=== PATIENT | male | born 1960 | race Caucasian/White ===

== ENCOUNTER → 2016-07-14 | Outpatient (CLI) | payer OTHER ==
[~2016-07-14] MED LIST: IOPAMIDOL (ISOVUE 370) 100 ML BTL IV ONE
--- NOTE | 2016-07-14 19:12 | CT ---
CT Chest Without Contrast dated July 14, 2016 Indication: 55-year-old man with history of ascending aortic aneurysm. Surveillance. Technique: 1.25 mm thick helically acquired slices were obtained through the chest without contrast. Contrast was not administered since the patient reported delayed mild contrast reaction following an iodinated contrast study in the past and the patient was not premedicated for the current exam. Comparison: MR angiogram of the chest dated May 13, 2014. Findings: The dilated ascending aorta now measures 5 cm AP (previously 4.8 cm). The descending thorac ic aorta is normal in caliber. Prosthetic aortic valve and graft are evidenced by a radiopaque materi al at the level of the valve and downstream graft anastomosis. No mediastinal stranding or hematoma. No enlarged lymph node or mass throughout the axilla, mediastin um or pulmonary percy. No pericardial or pleural effusion. The lungs are well aerated and clear. No emphysema or pulmonary fibrosis. Central airway is clear. No bronchiectasis or mucous plugging. A probably benign 2 mm round well-circumscribed nodule is present in the posterior segment right upper lobe on image 90 of series 3. No suspicious spiculated or groun dglass nodules. No bone lesions. Remote sternotomy is completely osseous fused. The wires are intact. Impression: 1. Ascending aortic aneurysm increased 2 mm in diameter since May 2014. 2. No suspicious pulmonary nodule or lymphadenopathy. 3. Mild CT contrast ALLERGY.
== END ==
LOC: CIMAGING 15:24
PROVIDERS: ATTEND Internal Medicine Cardiovascular Disease
DX: I71.2 Thoracic aortic aneurysm, without rupture (principal)
CPT/HCPCS: 71250-PO; Q9967

== ENCOUNTER → 2016-08-15 | Day surgery (SDC) | payer OTHER ==
[~2016-08-15] MED LIST changes: +ASPIRIN EC 325 MG TAB PO ONE; +DIAZEPAM 5 MG TAB ONE; +DIAZEPAM 5 MG TAB PO ONE; +FAMOTIDINE 20 MG/NACL 50 ML IV ONE; +FAMOTIDINE 20 MG/NACL/50 ML BAG IV ONE; +LIDOCAINE 1% 30 ML SDV ONE; +MIDAZOLAM 2 MG/2 ML VIAL ONE; +NS 1,000 ML IV ONE; +diphenhydrAMINE 25 MG CAP PO ONE; +fentaNYL 100 MCG/2 ML INJ ONE; +methylPREDNISolone SOD SUCC 125 MG/2 ML VIAL IVP ONE; +methylPREDNISolone SOD SUCC 125 MG/2 ML VIAL ONE
--- NOTE | 2016-08-15 09:35 | CPEKG ---
Heart Rate: 63 RR Interval: 952 P-R Interval: 184 QRSD Interval: 116 QT Interval: 436 QTC Interval: 447 P Blodgett: -51 QRS Blodgett: -7 T Wave Blodgett: 44 EKG Severity - ABNORMAL ECG - EKG Impression: SINUS OR ECTOPIC ATRIAL RHYTHM EKG Impression: NONSPECIFIC INTRAVENTRICULAR CONDUCTION DELAY Electronically Signed By: Patel Clifford 17-Aug-2016 08:47:21
[2016-08-15 09:57] LABS: % IMMATURE GRANULYOCYTES 0.3 % (0.0-1.1); ABSOLUTE IMMATURE GRANULOCYTES 0.01 10^3/uL (0.00-0.10); ADD DIFF? NO; ADD MORPH? NO; ADD SCAN? NO; ATYPICAL LYMPHOCYTE FLAG 10 (0-99); FRAGMENT RBC FLAG 0 (0-99); HEMATOCRIT 42.6 % (40.0-51.0); HEMOGLOBIN 14.4 g/dL (13.7-17.5); LEFT SHIFT FLG 0 (0-99); LIPEMIA HEMOLYSIS FLAG 90 (0-99); MEAN CELL HEMOGLOBIN 29.7 pg (27.9-34.1); MEAN CELL HEMOGLOBIN CONCENTR. 33.8 g/dL (32.4-36.7); MEAN CELL VOLUME 87.8 fL (81.5-99.8); MEAN PLATELET VOLUME 9.1 fL (8.7-11.7); PLATELET CLUMPS FLAG 0 (0-99); PLATELET COUNT 176 10^3/uL (150-400); RED BLOOD CELL COUNT 4.85 10^6/uL (4.40-6.38); RED CELL DISTRIBUTION WIDTH 12.5 % (11.5-15.2)
[2016-08-15 10:10] LABS: INR 1.26 (0.83-1.16); PROTIME(PATIENT) 15.8 SEC (12.0-15.0)
[2016-08-15 10:30] LABS: ANION GAP 10 mEq/L (8-16); CALCIUM 8.5 mg/dL (8.5-10.4); CARBON DIOXIDE 27 mEq/l (22-31); CHLORIDE 105 mEq/L (97-110); CHOLESTEROL 206 mg/dL (140-220); CHOLESTEROL/HDL RATIO 3.96 RATIO (1.00-4.97); CREATININE 0.8 mg/dL (0.7-1.3); GLOMERULAR FILTRATION RATE > 60; GLUCOSE 92 mg/dL (70-100); HIGH DENSITY LIPOPROTEIN 52 mg/dL (40-65); LDL/HDL RATIO 2.75 RATIO (1.00-3.64); LOW DENSITY LIPOPROTEIN 143 mg/dL (80-100); MAGNESIUM 1.9 mg/dL (1.6-2.3); NON-HIGH DENSITY LIPOPROTEIN 154 mg/dL (90-129); POTASSIUM 4.1 mEq/L (3.5-5.2); SODIUM 142 mEq/L (134-144); TRIGLYCERIDE 59 mg/dL (40-150); VERY LOW DENSITY LIPOPROTEINS 11 mg/dL (8-25)
--- NOTE | 2016-08-15 12:39 | CPIP ---
[f rep st] INVASIVE CARDIAC PROCEDURE DATE OF PROCEDURE: 08/15/2016 PROCEDURE: Coronary angiography. INDICATION: Patient presents for preoperative evaluation prior to AVR and aortic root repair. ACCESS: Patient was prepped and draped in sterile fashion. 1% lidocaine was used to anesthetize the right inguinal region. A 6-Guatem[place] introducer sheath was placed selectively into the right common fe moral artery via modified Seldinger technique. CORONARY ANGIOGRAPHY: A 5-[place] JL 5.0 was advanced to the left main coronary artery and images obt ained. The left main coronary artery bifurcated into an LAD and circumflex coronary arteries. The l eft main coronary artery appeared normal. The left anterior descending coronary artery had a single, discrete 70-75% stenosis in the midvessel. The left anterior descending coronary artery gave rise t o 3 diagonal branches. The 3 diagonal branches appeared normal. The circumflex coronary artery is a moderate to large sized vessel. The circumflex coronary artery gave rise to 1 prominent OM branch. The circumflex coronary artery and its complement of OM branches appeared normal. A 6-[place] JR4 wa s advanced to the right coronary artery and images obtained. The right coronary artery is dominant. The right coronary artery appeared normal. LEFT VENTRICULOGRAPHY: Left ventriculography was not performed given patient has a mechanical AVR. COMPLICATIONS: None. CONCLUSIONS: 1. Single-vessel coronary artery disease involving the mid left anterior descending coronary artery. 2. Plan is for left internal mammary artery to left anterior descending at time of surgery. /[id number]/MODL
== END | disposition home or self-care (01) ==
LOC: FCATH 09:13
PROVIDERS: ATTEND Internal Medicine Cardiovascular Disease
PROC: B2111ZZ Fluoroscopy of Multiple Coronary Arteries using Low Osmolar Contrast (ICD-10-PCS; principal; 2016-08-15)
DX: Z01.810 Encounter for preprocedural cardiovascular examination (principal); I35.9 Nonrheumatic aortic valve disorder, unspecified; I71.2 Thoracic aortic aneurysm, without rupture; I25.10 Atherosclerotic heart disease of native coronary artery without angina pectoris; I48.0 Paroxysmal atrial fibrillation; Z95.2 Presence of prosthetic heart valve
CPT/HCPCS: C1760; J1200; J1644; J2250; J3010; Q9967

== ENCOUNTER 2016-09-09 05:48 | Inpatient (IN) | payer OTHER ==
[2016-09-07 10:54] LABS: HEMOGLOBIN A1C 5.2 % (4.0-6.0)
[2016-09-09] MEDS ORDERED: NOREPINEPHRINE BITARTRATE 16 MG in NS 250 ML IV ONE (06:00)
[2016-09-09] MEDS ORDERED: NS 1,000 ML IV ONE (06:00)
[2016-09-09] MEDS ORDERED: SODIUM BICARBONATE 20 MEQ, LIDOCAINE 1% 10 ML in NORMOSOL-R 1,000 ML MISC ONE (06:00)
[2016-09-09] MEDS ORDERED: ceFAZolin 2 GM/DEXTROSE 100 ML IV ONE (06:00)
[2016-09-09] MEDS ORDERED: CITRATE DEXTROSE SOLN 500 ML BAG MISC ONE (06:00)
[2016-09-09] MEDS ORDERED: niCARdipine/NACL 200 ML IV ONE (06:00)
[2016-09-09] MEDS ORDERED: PHENYLEPHRINE HCL 50 MG in NS 250 ML IV ONE (06:00)
[2016-09-09] MEDS ORDERED: INSULIN REGULAR HUMAN 100 UNIT in NS 100 ML IV ONE (06:00)
[2016-09-09] MEDS ORDERED: MANNITOL 25% 12.5 GM/50 ML VIAL IV ONE (06:00)
[2016-09-09] MEDS ORDERED: LIDOCAINE 1% 5 ML SDV ID PRN ×2 (06:00→06:58)
[2016-09-09] MEDS ORDERED: AMINOCAPROIC ACID 5 GM/20 ML VIAL IV ONE (06:00)
[2016-09-09] MEDS ORDERED: POTASSIUM Cl (KCl) 20 MEQ/50 ML BAG IV ONE (06:17)
[2016-09-09] MEDS ORDERED: PROTAMINE SULFATE 50 MG/5 ML VIAL IVP ONE (06:17)
[2016-09-09] MEDS ORDERED: ALBUMIN 5% 250 ML BOTTLE IV ONE (06:17)
[2016-09-09] MEDS ORDERED: MILRINONE/DEXTROSE/100 ML BAG IV ONE (06:17)
[2016-09-09] MEDS ORDERED: CALCIUM CHLORIDE 1 GM/10 ML INJ ONE (06:17)
[2016-09-09] MEDS ORDERED: CITRATE DEXTROSE SOLN 500 ML BAG ONE (06:18)
[2016-09-09] MEDS ORDERED: ADENOSINE 6 MG/2 ML VIAL ONE (06:18)
[2016-09-09] MEDS ORDERED: AMINOCAPROIC ACID 5 GM/20 ML VIAL ONE (06:18)
[2016-09-09] MEDS ORDERED: MAGNESIUM SULFATE 1 GM/2 ML VIAL ONE (06:18)
[2016-09-09] MEDS ORDERED: DOPamine/DEXTROSE/250 ML BAG IV ONE (06:18)
[2016-09-09] MEDS ORDERED: methylPREDNISolone SOD SUCC 1 GM/8 ML VIAL ONE (06:18)
[2016-09-09] MEDS ORDERED: NA BICARBONATE 50 MEQ/50 ML VIAL ONE (06:18)
[2016-09-09] MEDS ORDERED: AMIODARONE HCL 150 MG/3 ML VIAL ONE (06:18)
[2016-09-09] MEDS ORDERED: LIDOCAINE 2% 100 MG/5 ML SYR ONE ×2 (06:18→07:22)
[2016-09-09] MEDS ORDERED: niCARdipine/NACL/200 ML BAG IV ONE (06:18)
[2016-09-09] MEDS ORDERED: HEPARIN 10,000 UNIT/10 ML MDV ONE (06:19)
[2016-09-09] MEDS ORDERED: ceFAZolin 1 GM VIAL ONE (06:19)
[2016-09-09] MEDS ORDERED: LIDOCAINE 2% 5 ML SDV ONE (06:23)
[2016-09-09] MEDS ORDERED: LR 1,000 ML IV ONE (06:58)
[2016-09-09] MEDS ORDERED: VERAPAMIL 5 MG/2 ML VIAL ONE (07:07)
[2016-09-09] MEDS ORDERED: SKIN ADHESIVE (DERMABOND) 1 EACH TP ONE (07:07)
[2016-09-09] MEDS ORDERED: PAPAVERINE HCL 60 MG/2 ML SDV ONE (07:07)
[2016-09-09] MEDS ORDERED: MIDAZOLAM 2 MG/2 ML VIAL ONE ×3 (07:10→07:16)
[2016-09-09] MEDS ORDERED: REMIFENTANIL HCL 1 MG VIAL ONE ×2 (07:15→09:37)
[2016-09-09] MEDS ORDERED: fentaNYL 250 MCG/5 ML INJ ONE (07:16)
[2016-09-09] MEDS ORDERED: PROPOFOL/EMULSION 500 MG/50 ML BOTTLE IV ONE ×2 (07:16→09:38)
[2016-09-09 07:17] LABS: INR 1.2 (0.83-1.16); PROTIME(PATIENT) 15.2 SEC (12.0-15.0)
[2016-09-09] MEDS ORDERED: ROCURONIUM 50 MG/5 ML VIAL ONE ×2 (07:19→14:15)
[2016-09-09] MEDS ORDERED: ONDANSETRON 4 MG/2 ML VIAL ONE (07:19)
[2016-09-09] MEDS ORDERED: PHENYLEPHRINE HCL 100 MCG/ML SYR ONE ×3 (07:19→14:21)
[2016-09-09] MEDS ORDERED: ROCURONIUM 100 MG/10 ML VIAL ONE (07:19)
[2016-09-09] MEDS ORDERED: epHEDrine SULFATE 10 MG/ML SYR ONE (07:19)
[2016-09-09] MEDS ORDERED: DEXAMETHASONE 4 MG/ML VIAL ONE ×2 (07:19)
[2016-09-09] MEDS ORDERED: VERAPAMIL 5 MG, NITROGLYCERIN 2.5 MG, HEPARIN 500 UNIT, SODIUM BICARBONATE 0.2 MEQ in L... MISC ONE (09:00)
[2016-09-09] MEDS: MUPIROCIN 2% 22 GM OINT NS SCH ×3 (11:42→22:07)
[2016-09-09] MEDS ORDERED: PROPOFOL 200 MG/20 ML VIAL ONE ×2 (12:31→14:16)
[2016-09-09] MEDS ORDERED: morphINE *ANESTHESIA ONLY* 10 MG/ML VIAL ONE (12:33)
[2016-09-09] MEDS ORDERED: MAGNESIUM SULF 2 GM/WATER 50 ML BAG IV ONE (12:58)
[2016-09-09] MEDS ORDERED: SUGAMMADEX SODIUM 200 MG/2 ML VIAL IVP ONE (13:08)
[2016-09-09] MEDS ORDERED: LACTULOSE 20 GM/30 ML UDCUP PO PRN (13:28)
[2016-09-09] MEDS ORDERED: ALBUMIN 5% 250 ML IV PRN (13:28)
[2016-09-09] MEDS ORDERED: ACETAMINOPHEN 325 MG TAB PO PRN (13:28)
[2016-09-09] MEDS ORDERED: SODIUM CL NASAL 45 ML BTL EACHNARE PRN (13:28)
[2016-09-09] MEDS ORDERED: POTASSIUM Cl (KCl) 50 ML IV PRN (13:28)
[2016-09-09] MEDS ORDERED: ONDANSETRON DISINTEGRATING 4 MG TAB PO PRN (13:28)
[2016-09-09] MEDS ORDERED: BISACODYL 10 MG SUPP PR PRN (13:28)
[2016-09-09] MEDS ORDERED: ACETAMINOPHEN 650 MG SUPP PR PRN (13:28)
[2016-09-09] MEDS ORDERED: METOCLOPRAMIDE 10 MG/2 ML VIAL IVP PRN (13:28)
[2016-09-09] MEDS ORDERED: POLYETHYLENE GLYCOL 3350 17 GM PKT PO PRN (13:28)
[2016-09-09] MEDS ORDERED: MAGNESIUM SULF 2 GM/WATER 50 ML IV ONE (13:28)
[2016-09-09] MEDS ORDERED: D50W 25 GM/50 ML SYR IVP PRN (13:28)
[2016-09-09] MEDS ORDERED: ONDANSETRON 4 MG/2 ML VIAL IVP PRN (13:28)
[2016-09-09] MEDS ORDERED: PANTOPRAZOLE SODIUM 40 MG in NS 100 ML IV ONE (13:28)
[2016-09-09] MEDS ORDERED: MAGNESIUM HYDROXIDE 30 ML UDCUP PO PRN (13:28)
[2016-09-09] MEDS ORDERED: MEPERIDINE 25 MG/ML SYR IVP PRN (13:28)
[2016-09-09] MEDS ORDERED: CEPACOL LOZENGE PO PRN (13:28)
[2016-09-09] MEDS ORDERED: INSULIN REGULAR HUMAN 100 UNIT in NS 100 ML IV SCH (13:30)
[2016-09-09] MEDS ORDERED: NS 1,000 ML IV SCH (13:30)
[2016-09-09] MEDS ORDERED: PHENYLEPHRINE 0.5% NASAL 15 ML SPRAY ONE (13:37)
[2016-09-09] MEDS ORDERED: FAMOTIDINE 20 MG/NACL 50 ML IV SCH (15:00)
[2016-09-09 15:10] LABS: CALCULATED OXYGEN SATURATION 100 % (92-95)
[2016-09-09] MEDS: fentaNYL 100 MCG/2 ML INJ IVP PRN ×5 (15:50→23:41)
[2016-09-09] MEDS: ceFAZolin 2 GM/DEXTROSE 100 ML IV SCH ×2 (16:13→21:42)
--- NOTE | 2016-09-09 16:33 | POSTOPPROG ---
Post Op Note Date of Operation: 09/09/16 Surgeon: Shane Eaton Thread Grinder: Dionicio Anesthesiologist: Jerman Anesthesia: GET(General Endotracheal) Pre-op Diagnosis: ASHD, Ascending aneurysm, PAF Procedure: CMIV, redo AVR, replace asc aorta #26 graft, Cabezas-Lad, Atriclip Inf/Abcess present in the surg proc area at time of surgery?: No EBL: 100-500 Drains: Other (3 blakes)
--- NOTE | 2016-09-09 19:22 | GOP ---
[f rep st] OPERATIVE REPORT DATE OF OPERATION: 09/09/2016 SURGEON: Shane Eaton DO WOOL HAT FINISHER: Barbara Greenberg PA-C. ANESTHESIOLOGIST: Ty Stoll MD. PREOPERATIVE DIAGNOSIS: 1. Enlarging ascending aortic aneurysm with a history of bicuspid aortic valve disease, status post previous aortic valve replacement with a known periprosthetic leak. 2. Arteriosclerotic heart disease. 3. Paroxysmal atrial fibrillation. POSTOPERATIVE DIAGNOSIS: 1. Enlarging ascending aortic aneurysm with a history of bicuspid aortic valve disease, status post previous aortic valve replacement with a known periprosthetic leak. 2. Arteriosclerotic heart disease. 3. Paroxysmal atrial fibrillation. PROCEDURE PERFORMED: 1. Reoperation aortic valve replacement with #27 Magna bioprosthesis. 2. Replace the ascending aorta with #26 Hemashield graft. 3. Left internal mammary artery to the LAD. 4. Full left- and right-sided Esparza-Maze IV utilizing both radiofrequency and cryoablation. FINDINGS: Patient was noted to have enlarging ascending aortic aneurysm. He had undergone prior ao rtic valve replacement with an aortoplasty and had a known perivalvular leak. He was consented for reoperation bioprosthetic valve with the indication to set him up for eventual TAVR in 15 or 20 year s if necessary. There was consideration to root replacement if findings at the time of surgery dict ated or warranted such. He also was noted to have a high-grade mid LAD lesion and had greater than a decade of paroxysmal atrial fibrillation. He was brought to the operating room, intubated, monito ring lines were placed. He was prepped and draped in sterile classical manner. A repeat sternotomy was performed without incident. Marsupialization of the heart was performed with dense adhesions n oted. He was then heparinized and cannulated in the aorta and bicaval cannulas with tapes as well a s antegrade cardioplegic catheter. We then did exit block testing which revealed all 3 sites on bot h left and right positive. We then did ganglionic plexi testing on both sides, ablating several sit es. We then encircled the right pulmonary veins without difficulty and ablated that with radiofrequ ency with approximately 8 lesion sets performed. We then initiated cardiopulmonary bypass and disse cted out the left pulmonary veins, encircled them and created 8 ablation lesion sets in the antrum o f the left atrium. We then proceeded with cryoablation at the terminus of the left and right vessel s across the coronary sinus with the heart still beating. We then secured caval tapes and opened th e right atrium in a vertical fashion, extending into the isthmus with cryo for 2 minutes, and then u p into the right atrial appendage in the free wall lesion and as well as the superior and inferior v hawa caval lesions utilizing radiofrequency, avoiding the sinus node. The right atrium was then clos ed. The crossclamp was applied, and the patient was arrested. We then opened the left atrial appen dage and ablated up to the left superior pulmonary vein. We then applied a 35 mm AtriClip to his ba se. We then opened the left atrium through the right superior pulmonary vein through the previous a blation line and performed roof and floor lesions connecting to the left-sided pulmonary veins with multiple lesion sets applied and an isthmus lesion utilizing initially radiofrequency up to the valv e anulus and then cryo overlapping both. The left atrium was then closed. We then excised the asce nding aorta from the sinotubular junction to the innominate artery where it measured 5 cm. The sinu ses were not significantly enlarged, although it appeared to be a true bicuspid valve. The sinuses were very thick, firm tissue without any evidence of dilation. For that reason, no root was perform ed. We then excised a well-seated mechanical prosthetic valve, debriding the anulus and irrigating the LV chamber and utilizing CO2 throughout the procedure. We then placed a 25 mm Magna valve in a supra-annular position with interrupted 2-0 Tycron pledgeted mattress sutures. We then fashioned a 26 mm graft distal distally to the distal ascending aorta with a continuous running 3-0 Prolene sutu re, followed by the proximal anastomosis without difficulty. Cross-clamp was removed with suction o n the ascending aortic vent and LV sump. When no further air was identified, the vents and sump wer e removed. The patient was allowed to easily wean from bypass. The heparin was reversed with prota mine. The cannulas were removed and oversewn. After hemostasis was obtained, the thymic fat and pe ricardium were closed. We did make lateral pericardial incisions 2 cm above the phrenic nerve to ru le out any potential bleeding to drain back into the pleura. The entire heart was completely covere d with a thymic fat and pericardium. Two Blakes were placed in the pleural and 1 in the mediastinum . The chest was closed in standard fashion. Patient was returned to ICU in stable condition. DESCRIPTION OF PROCEDURE: /[id number]/MODL
[2016-09-09] MEDS: CHLORHEXIDINE GLUCONATE 15 ML UDL PO SCH (21:42)
[2016-09-09 23:06] LABS: BASE EXCESS -2.2 mEq/L (-2.5-2.5); BICARBONATE 23 mEq/L (22-26); MEASURED OXYGEN SATURATION 98 % (92-95); PCO2 44 mmHg (34-38); PO2 115 mmHg (65-75); TCO2 24 mEq/L (23-27)
[2016-09-09 23:07] LABS: SIMV YES
[2016-09-09 23:08] LABS: END TIDAL CO2 53; O2 CONCENTRATIION 40 % (0-100); P/F RATIO 288 RATIO; TOTAL RATE 16
[2016-09-09 23:11] LABS: HEMATOCRIT 31.4 % (40.0-51.0); HEMOGLOBIN 10.6 g/dL (13.7-17.5); MEAN CELL HEMOGLOBIN 30.5 pg (27.9-34.1); MEAN CELL HEMOGLOBIN CONCENTR. 33.8 g/dL (32.4-36.7); MEAN CELL VOLUME 90.5 fL (81.5-99.8); RED BLOOD CELL COUNT 3.47 10^6/uL (4.40-6.38); RED CELL DISTRIBUTION WIDTH 13.2 % (11.5-15.2)
[2016-09-10] MEDS: fentaNYL 100 MCG/2 ML INJ IVP PRN ×5 (00:05→08:05)
[2016-09-10 04:04] LABS: % IMMATURE GRANULYOCYTES 0.2 % (0.0-1.1); ABSOLUTE IMMATURE GRANULOCYTES 0.02 10^3/uL (0.00-0.10); ADD DIFF? NO; ADD MORPH? NO; ADD SCAN? NO; ATYPICAL LYMPHOCYTE FLAG 0 (0-99); FRAGMENT RBC FLAG 0 (0-99); HEMATOCRIT 31.6 % (40.0-51.0); HEMOGLOBIN 10.8 g/dL (13.7-17.5); LEFT SHIFT FLG 70 (0-99); LIPEMIA HEMOLYSIS FLAG 90 (0-99); MEAN CELL HEMOGLOBIN 30.6 pg (27.9-34.1); MEAN CELL HEMOGLOBIN CONCENTR. 34.2 g/dL (32.4-36.7); MEAN CELL VOLUME 89.5 fL (81.5-99.8); MEAN PLATELET VOLUME 9.2 fL (8.7-11.7); PLATELET CLUMPS FLAG 10 (0-99); PLATELET COUNT 92 10^3/uL (150-400); RED BLOOD CELL COUNT 3.53 10^6/uL (4.40-6.38); RED CELL DISTRIBUTION WIDTH 13.4 % (11.5-15.2)
[2016-09-10 04:14] LABS: INR 1.29 (0.83-1.16); PROTIME(PATIENT) 16.1 SEC (12.0-15.0)
[2016-09-10 04:30] LABS: ANION GAP 7 mEq/L (8-16); CALCIUM 8.3 mg/dL (8.5-10.4); CARBON DIOXIDE 25 mEq/l (22-31); CHLORIDE 110 mEq/L (97-110); CREATININE 0.8 mg/dL (0.7-1.3); GLOMERULAR FILTRATION RATE > 60; GLUCOSE 105 mg/dL (70-100); POTASSIUM 4.5 mEq/L (3.5-5.2); SODIUM 142 mEq/L (134-144)
[2016-09-10 04:38] LABS: BASE EXCESS -0.5 mEq/L (-2.5-2.5); BICARBONATE 24 mEq/L (22-26); MEASURED OXYGEN SATURATION 98 % (92-95); PCO2 45 mmHg (34-38); PO2 100 mmHg (65-75); SIMV YES; TCO2 26 mEq/L (23-27)
[2016-09-10 04:39] LABS: END TIDAL CO2 51; O2 CONCENTRATIION 40 % (0-100); P/F RATIO 250 RATIO; TOTAL RATE 16
[2016-09-10] MEDS: ceFAZolin 2 GM/DEXTROSE 100 ML IV SCH ×3 (05:30→22:54)
[2016-09-10] MEDS ORDERED: HEPARIN 5,000 UNIT/0.5 ML SYR SC SCH ×2 (06:00)
--- NOTE | 2016-09-10 08:40 | SOAPPROG ---
SOAP Progress Note Assessment/Plan: Assessment: POD#1 Redo median sternotomy, explant old mechanical AV, implant # 27mm Magna bovine pericardial AV, Asc aortic replacement with a dacron interposition graft, CABG x 1 (MILLER-LAD), CoxMaze IV, open harvest GSV left low leg. Mechanical AV with chronic PVL and enlarging aneurysmal aorta - s/p redo tissue AVR with rsxn and replacement of asc ao. Stable early postop hemodynamics without vasoactive support, tachyarrhythmias or backup pacing. Antithrombotic prophylaxis with Coumadin as per MAZE. [facility]. Incidental CAD w preserved LV systolic fx - s/p CABG with relatively small arterial graft. GSV harvested just in case flows inadequate, but not needed. Secondary prevention with baby ASA, BB as tolerated and statin when eating well. PAF - Preop control w prn propafenone. Post CM4 rhythm thus far sinus. AFib prophylaxis with BB as tolerated. Propafenone use to remain prn. Antithrombotic prophylaxis with Coumadin to INR 2-3. Duration 3 mo and then as dictated by rhythm. Acute expected blood loss anemia with thrombocytopenia and mild coagulopathy - Exacerbated by chronic anticoagulation. Stable s/p 1u PRBC, 1u Plt, 1u cryo and 4u FFP. Care with VTE prophylaxis, NSAID and re-anticoagulation while resolving coagulopathy. Postoperative acute respiratory failure - Extubation trial in the OR unsuccessful d/t somnolence and NGT related epistaxis. Kept intubated overnight on minimal support. Easily weaned to extubation earlier this am. Modest suppl O2 requirement. Nl swallow. Clear CXR. Plan: Routine POD#1 orders re lines, drains, orals and mobility. Keep blakes to pleurovac for now. Start coumadin tomorrow. Start metoprolol 12.5mg BID with conservative hold parameters. Likely can tx to PCU later today. 09/10/16 08:37 Subjective: Doing ok. Glad to have ETT out. Adequate analgesia. Objective: Vital Signs Temp Pulse Resp BP Pulse Ox 37.6 C 89 20 135/72 H 100 09/10/16 07:34 09/10/16 07:58 09/10/16 07:58 09/10/16 07:58 09/10/16 07:58 Laboratory Results 09/10/16 03:55 09/10/16 03:55 09/09/16 09/10/16 09/11/16 05:59 05:59 06:59 Intake Total 4608.8 Output Total 4980 125 Balance -371.2 -125 PT 16.1 SEC (12.0-15.0) H 09/10/16 03:55 INR 1.29 (0.83-1.16) H 09/10/16 03:55 Early am CPAP trials well tolerated and extubated without incident. Holding SR with rare PVCs. MAPs > 65. Balanced I/Os. CTOP responsive to products. Intermittent AL reported by nursing. None seen currently. CXR neg for PTX. Physical Exam - Physical Exam General Appearance: alert, no apparent distress Respiratory: lungs clear, other (blakes x 3 y-d to pleurovac, thin sanguinous drainage, sm tidal, no AL w good cough) Cardiac/Chest: regular rate, rhythm, other (Sternum grossly stable. Sternotomy CDI. 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
[2016-09-10] MEDS ORDERED: ASPIRIN 81 MG CHEWABLE TAB TUBE PRN (09:00)
[2016-09-10] MEDS: CHLORHEXIDINE GLUCONATE 15 ML UDL PO SCH (09:29)
[2016-09-10] MEDS: PANTOPRAZOLE SODIUM 40 MG TAB PO SCH (09:29)
[2016-09-10] MEDS: ASPIRIN 81 MG CHEWABLE TAB PO SCH (09:29)
[2016-09-10] MEDS: MUPIROCIN 2% 22 GM OINT NS SCH ×2 (09:30→22:57)
[2016-09-10 09:33] LABS: POTASSIUM 4.4 mEq/L (3.5-5.2)
[2016-09-10] MEDS: HYDROCODONE/APAP 5/325 TAB PO PRN ×4 (10:19→23:40)
[2016-09-10] MEDS ORDERED: NITROGLYCERIN 0.4 MG BTL SL PRN (10:20)
[2016-09-10] MEDS ORDERED: METOPROLOL TARTRATE 25 MG TAB PO ONE (12:00)
[2016-09-10 13:56] LABS: POTASSIUM 4.3 mEq/L (3.5-5.2)
[2016-09-10] MEDS ORDERED: oxyCODONE IR 5 MG TAB PO PRN (15:00)
[2016-09-10] MEDS: traMADol 50 MG TAB PO PRN (15:46)
[2016-09-10] MEDS: SENNOSIDES/DOCUSATE SODIUM TAB PO SCH (22:54)
[2016-09-10] MEDS: METOPROLOL TARTRATE 25 MG TAB PO SCH (22:56)
[2016-09-11 04:26] LABS: % IMMATURE GRANULYOCYTES 0.4 % (0.0-1.1); ABSOLUTE IMMATURE GRANULOCYTES 0.05 10^3/uL (0.00-0.10); ADD DIFF? NO; ADD MORPH? NO; ADD SCAN? NO; ATYPICAL LYMPHOCYTE FLAG 0 (0-99); FRAGMENT RBC FLAG 0 (0-99); HEMATOCRIT 32.7 % (40.0-51.0); HEMOGLOBIN 10.9 g/dL (13.7-17.5); LEFT SHIFT FLG 40 (0-99); LIPEMIA HEMOLYSIS FLAG 80 (0-99); MEAN CELL HEMOGLOBIN 30.6 pg (27.9-34.1); MEAN CELL HEMOGLOBIN CONCENTR. 33.3 g/dL (32.4-36.7); MEAN CELL VOLUME 91.9 fL (81.5-99.8); MEAN PLATELET VOLUME 9.6 fL (8.7-11.7); PLATELET CLUMPS FLAG 0 (0-99); PLATELET COUNT 95 10^3/uL (150-400); RED BLOOD CELL COUNT 3.56 10^6/uL (4.40-6.38); RED CELL DISTRIBUTION WIDTH 13.6 % (11.5-15.2)
[2016-09-11 04:35] LABS: ANION GAP 7 mEq/L (8-16); CALCIUM 8.2 mg/dL (8.5-10.4); CARBON DIOXIDE 28 mEq/l (22-31); CHLORIDE 101 mEq/L (97-110); CREATININE 0.7 mg/dL (0.7-1.3); GLOMERULAR FILTRATION RATE > 60; GLUCOSE 126 mg/dL (70-100); POTASSIUM 4.4 mEq/L (3.5-5.2); SODIUM 136 mEq/L (134-144)
[2016-09-11 04:38] LABS: INR 1.31 (0.83-1.16); PROTIME(PATIENT) 16.3 SEC (12.0-15.0)
--- NOTE | 2016-09-11 08:58 | SOAPPROG ---
SOAP Progress Note Assessment/Plan: Assessment: POD#2 Redo median sternotomy, explant old mechanical AV, implant # 27mm Magna bovine pericardial AV, Asc aortic replacement with a dacron interposition graft, CABG x 1 (MILLER-LAD), CoxMaze IV, open harvest GSV left low leg. Mechanical AV with chronic PVL and enlarging aneurysmal aorta - s/p redo tissue AVR with rsxn and replacement of asc ao. Stable early postop hemodynamics without vasoactive support, tachyarrhythmias or backup pacing. Antithrombotic prophylaxis with Coumadin as per MAZE. [facility] (2.[facility]-3.5) downgraded to 2-3 for surgical prophylaxis. Incidental CAD w preserved LV systolic fx - s/p CABG with relatively small arterial graft. GSV harvested just in case flows inadequate, but not needed. Secondary prevention with baby ASA, BB, and statin. PAF - Preop control w prn propafenone. Post CM4 rhythm thus far sinus. AFib prophylaxis with low dose Propafenone and BB as tolerated. Antithrombotic prophylaxis with Coumadin to INR 2-3. Duration 3 mo and then as dictated by rhythm. Acute expected blood loss anemia with thrombocytopenia and mild coagulopathy - Exacerbated by chronic anticoagulation. Stable s/p 1u PRBC, 1u Plt, 1u cryo and 4u FFP. Care with VTE prophylaxis, NSAID and re-anticoagulation while resolving coagulopathy and platelet suppression. Postoperative acute respiratory failure - Extubation trial in the OR unsuccessful d/t somnolence and NGT related epistaxis. Kept intubated overnight on minimal support. Easily weaned to extubation yest am. No post extubation insufficiency or recurrent epistaxis evidenced. Plan: Convert blakes to bulb suction. Cont metoprolol 12.5mg BID. Add daily propafenone 150 mg. Keep Vwire backup capacity for now. Coumadin 10 mg today (home regimen 10 alt 12.5). Start daily diuresis. Increase activity as tolerated. Dispo - Anticipate home in 2 days. 09/11/16 08:52 Subjective: Doing ok. Adequate analgesia. Light activity well tolerated. Improving appetite. Objective: Vital Signs Temp Pulse Resp BP Pulse Ox 37.1 C 86 22 H 118/73 99 09/11/16 08:15 09/11/16 08:15 09/11/16 08:15 09/11/16 08:15 09/11/16 08:15 Laboratory Results 09/11/16 04:05 09/11/16 04:05 09/10/16 09/11/16 09/12/16 04:59 05:59 05:59 Intake Total Output Total Balance PT 16.3 SEC (12.0-15.0) H 09/11/16 04:05 INR 1.31 (0.83-1.16) H 09/11/16 04:05 HR and BP controlled. No bradycardia. Suppl O2 req down to 1 Lpm. CXR remains clear - no PTX or undrained effusions. CTOP thinning and quantity plateauing. No air leak. Plt count and INR stable. - Pending Discharge Pending Discharge Within 48 Hours: Yes Pending Discharge Date: 09/13/16 Pending Discharge Time: 11:00 Physical Exam - Physical Exam General Appearance: alert, no apparent distress Respiratory: lungs clear, other (Blakes x 3 y-d to pleurovac, free flowing serosang drainage, +tidal, no AL; switched to bulb suction without incident) Cardiac/Chest: regular rate, rhythm, other (Sternum grossly stable. 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
[2016-09-11] MEDS: FUROSEMIDE 40 MG/4 ML VIAL IVP SCH ×2 (09:51→16:32)
[2016-09-11] MEDS: SENNOSIDES/DOCUSATE SODIUM TAB PO SCH ×2 (09:52→20:56)
[2016-09-11] MEDS: POTASSIUM CL 20 MEQ TAB PO SCH ×2 (09:52→20:56)
[2016-09-11] MEDS: PANTOPRAZOLE SODIUM 40 MG TAB PO SCH (09:53)
[2016-09-11] MEDS: METOPROLOL TARTRATE 25 MG TAB PO SCH ×2 (09:53→20:55)
[2016-09-11] MEDS: ASPIRIN 81 MG CHEWABLE TAB PO SCH (09:53)
[2016-09-11] MEDS: MUPIROCIN 2% 22 GM OINT NS SCH (09:54)
[2016-09-11] MEDS: traMADol 50 MG TAB PO PRN (10:48)
[2016-09-11] MEDS ORDERED: WARFARIN SODIUM 5 MG TAB PO ONE (16:00)
[2016-09-11] MEDS: HYDROCODONE/APAP 5/325 TAB PO PRN ×2 (17:16→22:50)
[2016-09-11] MEDS: PROPAFENONE HCL 150 MG TAB PO SCH (20:57)
[2016-09-12 06:23] LABS: INR 1.16 (0.83-1.16); PROTIME(PATIENT) 14.8 SEC (12.0-15.0)
[2016-09-12 06:26] LABS: POTASSIUM 3.9 mEq/L (3.5-5.2)
[2016-09-12] MEDS: SENNOSIDES/DOCUSATE SODIUM TAB PO SCH ×2 (09:05→20:11)
[2016-09-12] MEDS: ASPIRIN 81 MG CHEWABLE TAB PO SCH (09:05)
[2016-09-12] MEDS: OMEGA-3 FATTY ACIDS 1,000 MG CAP PO SCH (09:06)
[2016-09-12] MEDS: ATORVASTATIN CALCIUM 20 MG TAB PO SCH (09:06)
[2016-09-12] MEDS: METOPROLOL TARTRATE 25 MG TAB PO SCH (09:07)
[2016-09-12] MEDS: traMADol 50 MG TAB PO PRN ×2 (09:10→20:12)
[2016-09-12] MEDS: PANTOPRAZOLE SODIUM 40 MG TAB PO SCH (09:26)
--- NOTE | 2016-09-12 10:00 | SOAPPROG ---
SOAP Progress Note Assessment/Plan: Assessment: POD#3 Redo median sternotomy, explant old mechanical AV, implant # 27mm Magna bovine pericardial AV, Asc aortic replacement with a dacron interposition graft, CABG x 1 (MILLER-LAD), CoxMaze IV, open harvest GSV left low leg. Mechanical AV with chronic PVL and enlarging aneurysmal aorta - s/p redo tissue AVR with rsxn and replacement of asc ao. Stable early postop hemodynamics without vasoactive support, tachyarrhythmias or backup pacing. Antithrombotic prophylaxis with Coumadin as per MAZE. Pre-existing INR parameters for [facility] tilt disc AV (2.5-3.5) downgraded to 2-3 for surgical prophylaxis. Incidental CAD w preserved LV systolic fx - s/p CABG with relatively small arterial graft. GSV harvested just in case flows inadequate, but not needed. Secondary prevention with baby ASA, BB, and statin. PAF - Preop control w prn propafenone. Post CM4 rhythm thus far sinus. AFib prophylaxis with low dose Propafenone and BB as tolerated. Antithrombotic prophylaxis with Coumadin to INR 2-3. Duration 3 mo and then as dictated by rhythm. Acute expected blood loss anemia with thrombocytopenia and mild coagulopathy - Exacerbated by chronic anticoagulation. Stable s/p 1u PRBC, 1u Plt, 1u cryo and 4u FFP. Care with VTE prophylaxis, NSAID and re-anticoagulation while resolving coagulopathy and platelet suppression. Postoperative acute respiratory failure - Extubation trial in the OR unsuccessful d/t somnolence and NGT related epistaxis. Kept intubated overnight on minimal support. Easily weaned to extubation 09/10. No post extubation insufficiency or recurrent epistaxis evidenced. Plan: Remove mediastinal drain and TCPW. Keep pleural drains one more day. No further diuresis. NS 500 ml bolus x 1. Consider maintenance IVF if oral intake remains poor. Hold metoprolol for remainder of day. Cont daily propafenone 150 mg. Cont Coumadin 10 mg today (home regimen 10 alt 12.5). Increase activity as tolerated. Baseline postop echo tomorrow. Dispo - Anticipate home in 2 days. 09/12/16 09:58 Subjective: Not much appetite. Lightheaded and woozy when OOB after am meds. No CP, SOB, palpitations. Better once back supine. Objective: Vital Signs Temp Pulse Resp BP Pulse Ox 37.0 C 86 13 103/76 99 09/12/16 07:29 09/12/16 07:29 09/12/16 07:29 09/12/16 07:29 09/12/16 07:29 Laboratory Results 09/11/16 04:05 09/12/16 06:00 09/11/16 09/12/16 09/13/16 05:59 05:59 05:59 Intake Total 660 Output Total 4055 Balance -3395 PT 14.8 SEC (12.0-15.0) 09/12/16 06:00 INR 1.16 (0.83-1.16) 09/12/16 06:00 Holding SR with PACs. No tyrone or pauses. Vigorous diuresis yest w IV lasix. Orthostatic this am. Nearly off suppl O2. CTOP approaching removal criteria. INR yet to rise. - Pending Discharge Pending Discharge Within 48 Hours: Yes Pending Discharge Date: 09/14/16 Pending Discharge Time: 11:00 Physical Exam - Physical Exam General Appearance: alert, no apparent distress Respiratory: lungs clear, other (Blakes x 3 to bulb suction, serosang drainage) Cardiac/Chest: regular rate, rhythm, other (Sternum grossly stable. Sternotomy and LLE venotomy CDI. 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
[2016-09-12] MEDS ORDERED: NS 500 ML IV ONE (10:13)
[2016-09-12] MEDS ORDERED: POTASSIUM CL 20 MEQ TAB PO ONE (10:13)
--- NOTE | 2016-09-12 14:35 | PDDCSUM ---
Discharge Summary Discharge Summary: DATE OF ADMISSION: 09/07/16 DATE OF DISCHARGE: 09/12/16 DISPOSITION: Home, self-care. PRINCIPAL ADMISSION DIAGNOSIS: Atypical angina PRINCIPAL DISCHARGE DIAGNOSES: HISTORY OF PRESENT ILLNESS: PERTINENT PAST MEDICAL HISTORY: MEDICATIONS ON ADMISSION: ALLERGIES: contrast dye KELP CUTTER: PROCEDURES/IMAGING: ABBREVIATED HOSPITAL COURSE: DISCHARGE CLINICAL INFORMATION: FOLLOW UP APPOINTMENTS: 1. Cardiology: with Dr Alves at [facility] within 4-6 weeks. Appointment to be established during surgical visit. 2. CV surgery: with Dr Eaton at [facility] on 09/20 at 3. Pulmonology: with Dr Abel at 4. PCP: with FOLLOW UP TESTING: CXR prior to surgical appointment.
[2016-09-12] MEDS ORDERED: WARFARIN SODIUM 5 MG TAB PO SCH (16:00)
[2016-09-12] MEDS: PROPAFENONE HCL 150 MG TAB PO SCH (20:12)
[2016-09-13 06:34] LABS: INR 1.35 (0.83-1.16); PROTIME(PATIENT) 16.7 SEC (12.0-15.0)
--- NOTE | 2016-09-13 08:39 | SOAPPROG ---
SOAP Progress Note Assessment/Plan: Assessment: POD#4 Redo median sternotomy, explant old mechanical AV, implant # 27mm Magna bovine pericardial AV, Asc aortic replacement with a dacron interposition graft, CABG x 1 (MILLER-LAD), CoxMaze IV, open harvest GSV left low leg. Mechanical AV with chronic PVL and enlarging aneurysmal aorta - s/p redo tissue AVR with rsxn and replacement of asc ao. Stable early postop course. TCPW and mediastinal drain out. Antithrombotic prophylaxis with Coumadin as per MAZE. Pre -existing INR parameters for mech tilt disc AV (2.5-3.5) downgraded to 2-3 for surgical prophylaxis. Incidental CAD w preserved LV systolic fx - s/p CABG with relatively small arterial graft. GSV harvested just in case flows inadequate, but not needed. Secondary prevention with baby ASA, BB, and statin. PAF - Preop control w prn propafenone. Post CM4 rhythm thus far sinus w PACs. AFib prophylaxis initiated with low dose Propafenone and BB as tolerated. Antithrombotic prophylaxis with Coumadin to INR 2-3. Duration 3 mo and then as dictated by rhythm. Acute expected blood loss anemia with thrombocytopenia and mild coagulopathy - Exacerbated by chronic anticoagulation. Stable s/p 1u PRBC, 1u Plt, 1u cryo and 4u FFP. Re-anticoagulation with coumadin in progress. Postoperative acute respiratory failure - Extubation trial in the OR unsuccessful d/t somnolence and NGT related epistaxis. Kept intubated overnight on minimal support. Easily weaned to extubation 09/10. No post extubation insufficiency or recurrent epistaxis evidenced. Plan: Consider removal pleural drains this afternoon. Resume metoprolol 12.5 mg BID. Cont daily propafenone 150 mg. Cont Coumadin 10 mg daily (home regimen 10 alt 12.5). Increase activity as tolerated. Baseline postop echo today. Dispo - Anticipate home tomorrow. 09/13/16 08:34 Subjective: Feels much better. Appetite returning. Hearty dinner last night. Ensuing walks well tolerated. Objective: Vital Signs Temp Pulse Resp BP Pulse Ox 36.4 C 93 20 125/83 H 99 09/13/16 07:49 09/13/16 07:49 09/13/16 07:49 09/13/16 07:49 09/13/16 07:49 Laboratory Results 09/11/16 04:05 09/12/16 06:00 09/12/16 09/13/16 09/14/16 05:59 05:59 05:59 Intake Total 660 1430 Output Total 4055 1950 55 Balance -3395 -520 -55 PT 16.7 SEC (12.0-15.0) H 09/13/16 05:55 INR 1.35 (0.83-1.16) H 09/13/16 05:55 Holding SR with PACs. More robust SBP off metoprolol. Excellent sats on 1Lpm O2, likely can discontinue. Declining CTOP, nearing removal criteria. Adequate UOP. Appropriate INR response to coumadin. Physical Exam - Physical Exam General Appearance: alert (more talkative), no apparent distress Respiratory: lungs clear, other (pleural blakes to bulb suction, serosang drainage) Cardiac/Chest: regular rate, rhythm, other (Sternum grossly stable. Sternotomy CDI. 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
[2016-09-13] MEDS: METOPROLOL TARTRATE 25 MG TAB PO SCH ×2 (09:35→20:21)
[2016-09-13] MEDS: SENNOSIDES/DOCUSATE SODIUM TAB PO SCH ×2 (09:38→20:21)
[2016-09-13] MEDS: OMEGA-3 FATTY ACIDS 1,000 MG CAP PO SCH (09:39)
[2016-09-13] MEDS: ATORVASTATIN CALCIUM 20 MG TAB PO SCH (09:39)
[2016-09-13] MEDS: ASPIRIN 81 MG CHEWABLE TAB PO SCH (09:40)
[2016-09-13] MEDS: PANTOPRAZOLE SODIUM 40 MG TAB PO SCH (09:40)
[2016-09-13] MEDS: traMADol 50 MG TAB PO PRN ×2 (09:40→20:22)
--- NOTE | 2016-09-13 11:13 | ECHO ---
[id number] + + [address] : : [place] [address] : : [phone] + + Adult Echocardiographic Report + ---------+ :Name: JACQUELINE GRAY JStudy Date: 09/13/2016 09:05 AM : : Hospital Admission Number: [id number] Sheeba aguilar: 206: :: 1960 Gender: Male Height: 75 i n : :Age: 55 yrs Race: WH Weight: 180 lb : :Reason For Study: Eval LV Fx : : BSA: 2.1 met ers2 : :History: Postop AVR 27mmCE magna bovine pericardial valve : + ---------+ MMode/2D Measurements \T\ Calculations IVSd: 1.0 cm LVIDd: 5.0 cm FS: 35.7 % Ao root diam: 3.3 cm LVPWd: 1.1 cm LVIDs: 3.2 cm EDV(Teich): 120.8 ml ACS: 1.3 cm ESV(Teich): 42.4 ml LA dimension: 2.7 cm EF(Teich): 64.9 % LVOT diam: 2.7 cm LVOT area: 5.7 cm2 Normal Measurement Values: + + :LVIDd (3.5-5.7cm) IVSd (0.6-1.1cm) LVPWd (0.6-1.1cm) Aortic Root (2.0-3.7cm)Left Atrium (1.5-4.0cm): :LV Vol(d) (76-115ml) LV Vol(s) (29-48ml) Ejec Fraction (50-65%)PV Kenny (0.6- 1.2m/s) TV Kenny (0.4-1.0m/s) : :MV E Kenny (0.8-1.0m/s)MV A Kenny (0.3-1.0m/s)LVOT Kenny (0.7-1.2m/s) Asc Ao Kenny ( 0.9-1.8m/s) : + + Doppler Measurements \T\ Calculations MV E max kenny: Ao V2 max: LV V1 max: SV(LVOT): 78.5 cm/sec 195.5 cm/sec 77.5 cm/sec 76.8 ml MV A max kenny: Ao max P.3 mmHgLV V1 max P.2 cm/sec Ao mean P.3 mmHg2.4 mmHg MV E/A: 1.3 Ao V2 mean: LV V1 mean P.8 cm/sec 1.6 mmHg Ao V2 VTI: 28.7 cm LV V1 mean: 59.6 cm/sec JULIA(I,D): 2.7 cm2 LV V1 VTI: 13.4 cm JULIA(V,D): 2.3 cm2 PA V2 max: TR max kenny: 119.4 cm/sec 225.3 cm/sec PA max P.7 mmHg TR max P.3 mmHg RAP systole: 5.0 mmHg RVSP(TR): 25.3 mmHg Left Ventricle The left ventricle is normal in size and function. There is normal left ventricular wall thickness. The left ventricular ejection fraction is normal. Ejection Fraction = 65%. The left ventricular wall motion is normal. Right Ventricle The right ventricle is normal in size and function. Atria The left atrial size is normal. Right atrial size is normal. Mitral Valve The mitral valve is normal in structure and function. There is no evidence of mitral valve prolapse. There is no mitral valve stenosis. There is mild mitral regurgitation. Tricuspid Valve Normal tricuspid valve. There is mild tricuspid regurgitation. Right ventricular systolic pressure is normal. Aortic Valve There is a bioprosthetic aortic valve. The prosthetic aortic valve is well- seated. The gradient is normal for this prosthetic aortic valve. Pulmonic Valve The pulmonic valve is normal in structure and function. Mild pulmonic valvular regurgitation. Great Vessels The aortic root is normal size. Pericardium/Pleural trivial pericardial effusion. Conclusion A complete two-dimensional transthoracic echocardiogram was performed (2D, M-mode, Doppler and color flow Doppler). The left ventricle is normal in size and function. The left ventricular ejection fraction is normal. Ejection Fraction = 65%. The left ventricular wall motion is normal. The mitral valve is normal in structure and function. There is mild mitral regurgitation. Normal tricuspid valve There is mild tricuspid regurgitation. Right ventricular systolic pressure is normal. There is a bioprosthetic aortic valve. The prosthetic aortic valve is well-seated. The gradient is normal for this prosthetic aortic valve. Mild pulmonic valvular regurgitation. trivial pericardial effusion. Final Reading Physician: Randa Yan signed on 09/13/2016 11:12 AM Ordering Physician: Barbara Greenberg Performed By: Raman Linder, TASHACS
[2016-09-13] MEDS ORDERED: WARFARIN SODIUM 5 MG TAB PO SCH ×2 (16:00)
[2016-09-13] MEDS: PROPAFENONE HCL 150 MG TAB PO SCH (20:22)
[2016-09-14 06:03] LABS: HEMATOCRIT 28.3 % (40.0-51.0); HEMOGLOBIN 9.5 g/dL (13.7-17.5); MEAN CELL HEMOGLOBIN 30.7 pg (27.9-34.1); MEAN CELL HEMOGLOBIN CONCENTR. 33.6 g/dL (32.4-36.7); MEAN CELL VOLUME 91.6 fL (81.5-99.8); RED BLOOD CELL COUNT 3.09 10^6/uL (4.40-6.38); RED CELL DISTRIBUTION WIDTH 12.9 % (11.5-15.2)
[2016-09-14 06:11] LABS: POTASSIUM 3.6 mEq/L (3.5-5.2)
[2016-09-14 06:20] LABS: INR 1.77 (0.83-1.16); PROTIME(PATIENT) 20.7 SEC (12.0-15.0)
[2016-09-14] MEDS ORDERED: POTASSIUM CL 20 MEQ TAB PO ONE (08:01)
[2016-09-14] MEDS ORDERED: METOPROLOL TARTRATE 25 MG TAB PO SCH ×2 (09:00→09:30)
--- NOTE | 2016-09-14 09:23 | SOAPPROG ---
SOAP Progress Note Assessment/Plan: POD#5 Redo median sternotomy, explant old mechanical AV, implant #27mm Magna bovine pericardial AV, Asc aortic replacement with a dacron interposition graft , CABG x 1 (MILLER-LAD), CoxMaze IV, open harvest GSV left low leg. Mechanical AV with chronic PVL and enlarging aneurysmal aorta - s/p redo tissue AVR with rsxn and replacement of asc ao. Stable early postop course. TCPW and drains out. Antithrombotic prophylaxis with Coumadin as per MAZE. Pre-existing INR parameters for mech tilt disc AV (2.5-3.5) downgraded to 2-3 for surgical prophylaxis. Incidental CAD w preserved LV systolic fx - s/p CABG with relatively small arterial graft. GSV harvested just in case flows inadequate, but not needed. Secondary prevention with baby ASA, BB, and statin. PAF - Preop control w prn propafenone. Post CM4 rhythm thus far sinus w PACs. AFib prophylaxis initiated with low dose Propafenone and BB. Antithrombotic prophylaxis with Coumadin to INR 2-3. Duration 3 mo and then as dictated by rhythm. Acute expected blood loss anemia with thrombocytopenia and mild coagulopathy - Exacerbated by chronic anticoagulation. Stable s/p 1u PRBC, 1u Plt, 1u cryo and 4u FFP. Re-anticoagulation with coumadin in progress. Postoperative acute respiratory failure - Extubation trial in the OR unsuccessful d/t somnolence and NGT related epistaxis. Kept intubated overnight on minimal support. Easily weaned to extubation 09/10. No post extubation insufficiency or recurrent epistaxis evidenced. 09/14/16 12:37 Subjective: Denies light-headedness, weakness, SOB, CP. Objective: Vital Signs Temp Pulse Resp BP Pulse Ox 37.1 C 100 18 115/78 91 L 09/14/16 07:44 09/14/16 07:44 09/14/16 07:44 09/14/16 07:44 09/14/16 07:44 Laboratory Results 09/14/16 05:35 09/14/16 05:35 09/13/16 09/14/16 09/15/16 05:59 05:59 05:59 Intake Total 1430 1080 Output Total 1950 1330 Balance -520 -250 PT 20.7 SEC (12.0-15.0) H 09/14/16 05:35 INR 1.77 (0.83-1.16) H 09/14/16 05:35 - Pending Discharge Pending Discharge Within 24 Hours: Yes Pending Discharge Date: 09/15/16 Pending Discharge Time: 11:00 Physical Exam - Physical Exam General Appearance: WD/WN, alert, no apparent distress EENT: No scleral icterus (R), No scleral icterus (L) Neck: normal inspection Respiratory: No respiratory distress Cardiac/Chest: tachycardia Abdomen: non-tender, soft, No distended Skin: normal color, warm/dry Extremities: No pedal edema Neuro/Psych: no motor/sensory deficits, alert, normal mood/affect, oriented x 3 ICD10 Worksheet Patient Problems: Problems Problem Status Onset Acute blood loss anemia Acute S/P CABG x 1 Acute ~09/09/16 S/P ablation of atrial fibrillation Acute ~09/09/16 S/P aortic valve replacement with bioprosthetic valve Acute ~09/09/16 S/P ascending aortic replacement Acute ~09/09/16 Ascending aortic aneurysm Chronic CAD in [place] artery Chronic Chronic anticoagulation Chronic PAF (paroxysmal atrial fibrillation) Chronic 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
[2016-09-14] MEDS: OMEGA-3 FATTY ACIDS 1,000 MG CAP PO SCH (09:24)
[2016-09-14] MEDS: ATORVASTATIN CALCIUM 20 MG TAB PO SCH (09:25)
[2016-09-14] MEDS: PANTOPRAZOLE SODIUM 40 MG TAB PO SCH (09:25)
[2016-09-14] MEDS: ASPIRIN 81 MG CHEWABLE TAB PO SCH (09:25)
[2016-09-14] MEDS: SENNOSIDES/DOCUSATE SODIUM TAB PO SCH (09:32)
--- NOTE | 2016-09-14 10:54 | CPEKG ---
Heart Rate: 96 RR Interval: 625 P-R Interval: 192 QRSD Interval: 110 QT Interval: 372 QTC Interval: 471 P Marion: 80 QRS Marion: 22 T Wave Marion: 108 EKG Severity - ABNORMAL ECG - EKG Impression: SINUS RHYTHM EKG Impression: NONSPECIFIC INTRAVENTRICULAR CONDUCTION DELAY EKG Impression: LATERAL AND HIGH LATERAL ST/T WAVE CHANGES NOTED EKG Impression: THESE ARE NEW IN COMPARISON TO PRIOR ECG Electronically Signed By: Patel Clifford 14-Sep-2016 12:08:02
[2016-09-14 11:09] VITALS: BP 103/66; PULSE 90; RESP 16; TEMP 99.2; O2SAT 95
--- NOTE | 2016-09-14 12:38 | PDDCSUM ---
Discharge Summary Discharge Summary: ADMISSION DATE: 09/09/16 DISCHARGE DATE: 09/14/16 ADMISSION DX: 1. Enlarging ascending aortic aneurysm 2. h/o bicuspid aortic valve s/p aortic valve replacement (mechanical) with known periprosthetic leak 3. Paroxysmal atrial fibrillation 4. Coronary artery disease 5. Chronic anticoagulation DISCHARGE DX: 1. Enlarging ascending aortic aneurysm 2. h/o bicuspid aortic valve s/p aortic valve replacement (mechanical) with known periprosthetic leak 3. Paroxysmal atrial fibrillation 4. Coronary artery disease 5. Chronic anticoagulation 6. Acute blood loss anemia secondary to coagulopathy 7. Postoperative acute respiratory failure PROCEDURES: 09/09/16, Shane Eaton: 1. Reoperation aortic valve replacement with #27 Magna bioprosthesis 2. Replacement ascending aorta with #26 Hemashield graft 3. CABG x 1 (MILLER-LAD) 4. Complete Esparza-Maze IV 5. Open harvest GSV from lower left leg HOSPITAL COURSE BY PROBLEM LIST 1. Enlarging ascending aortic aneurysm with h/o BAV s/p mechanical AVR with known periprosthetic leak - s/p reoperation AVR with #27 Magna bioprosthesis and replacement of ascending aorta with #26 Hemashield graft. Stable postoperative course. Coumadin no longer necessary for valve thromboprophylaxis since valve replaced with bioprosthesis. 2. Paroxysmal atrial fibrillation s/p full Esparza-Maze IV. Post-op sinus rhythm with rates on discharge between 100 and 110. Metoprolol prescribed at a lower dose of 12.5 mg BID due to SBP in low 100s. Daily propafenone started to maintain sinus rhythm - patient had previously taken this medication "as needed " for arrhythmias. Duration to be determined by stability of rhythm. Thromboprophylaxis with Coumadin (10 mg daily) prescribed for INR goal 2-3, duration to be determine by stability of rhythm. Last INR checked on 09/14 was 1.77. Plan for next INR check September 16 with patient's PCP. If patient unable to get INR checked he will call [facility]. 3. CAD s/p CABG x 1 (MILLER-LAD) - Vein harvested from leg in case mammary artery was unusable. Secondary prevention with beta-farida, statin, and baby aspirin. 4. Acute blood loss anemia secondary to coagulopathy - Stable s/p 1u PRBC, 1u platelet, 1u cryo, 4u FFP. 5. Postoperative acute respiratory failure - Attempt at extubation unsuccessful due to somnolence. Patient reintubated and extubated without incident the next day. CONDITION Good DISPOSITION Home, self-care ACTIVITY Pt was instructed on sternal precautions, activity limitations, and which problems to call [facility] with. Please see Discharge Plan in chart for specifics. D/C MEDICATIONS 1. Acetaminophen [Tylenol 325mg (*)] 325 - 650 mg PO Q6 PRN 2. Atorvastatin Calcium [Lipitor 20 mg (*)] 20 mg PO DAILY 3. [place]-3 Fatty Acids [Fish Oil 1000 mg (*)] 1,000 mg PO DAILY 4. Aspirin [Aspirin 81mg (*)] 81 mg PO DAILY 5. Hydrochlorothiazide [HCTZ (*)] 12.5 mg PO DAILY #30 6. Metoprolol Tartrate [Lopressor 25 mg (*)] 12.5 mg PO BID #60 7. Propafenone HCl [Rythmol 150mg (*)] 150 mg PO HS #30 8. Warfarin Sodium [Coumadin 5MG (*)] 10 mg PO DAILY AT 4PM 9. traMADol [Ultram 50 mg (*)] 50 mg PO Q4HRS PRN #40 PENDING STUDIES/LABS 1. INR 09/16 at PCP 2. CXR PA/lateral prior to surgical follow-up F/U APPOINTMENTS 1. Sahne Eaton - 09/20/16, 1:45 PM
== END 2016-09-14 15:26 | disposition home or self-care (01) | DRG 219 ==
LOC: F3E 05:48 → F2N 10:57 → F2W 09-10 17:10
PROVIDERS: ADMIT Thoracic Surgery (Cardiothoracic Vascular Surgery); ATTEND Thoracic Surgery (Cardiothoracic Vascular Surgery)
PROC: 02RX0JZ Replacement of Thoracic Aorta, Ascending/Arch with Synthetic Substitute, Open Approach (ICD-10-PCS; principal; 2016-09-09 07:15)
PROC: 5A1221Z Performance of Cardiac Output, Continuous (ICD-10-PCS; principal; 2016-09-09 07:15)
PROC: 025 Heart and Great Vessels, Destruction (ICD-10-PCS; principal; 2016-09-09 07:15)
PROC: 02570ZK Destruction of Left Atrial Appendage, Open Approach (ICD-10-PCS; principal; 2016-09-09 07:15)
PROC: 02580ZZ Destruction of Conduction Mechanism, Open Approach (ICD-10-PCS; principal; 2016-09-09 07:15)
PROC: 025 Heart and Great Vessels, Destruction (ICD-10-PCS; principal; 2016-09-09 07:15)
PROC: 02RF08Z Replacement of Aortic Valve with Zooplastic Tissue, Open Approach (ICD-10-PCS; principal; 2016-09-09 07:15)
PROC: 02100Z9 Bypass Coronary Artery, One Artery from Left Internal Mammary, Open Approach (ICD-10-PCS; principal; 2016-09-09 07:15)
PROC: 025 Heart and Great Vessels, Destruction (ICD-10-PCS; principal; 2016-09-09 07:15)
PROC: 025S0ZZ Destruction of Right Pulmonary Vein, Open Approach (ICD-10-PCS; principal; 2016-09-09 07:15)
PROC: 30233N1 Transfusion of Nonautologous Red Blood Cells into Peripheral Vein, Percutaneous Approach (ICD-10-PCS; 2016-09-09 07:15)
PROC: 30233M1 Transfusion of Nonautologous Plasma Cryoprecipitate into Peripheral Vein, Percutaneous Approach (ICD-10-PCS; 2016-09-09 07:15)
PROC: 30233R1 Transfusion of Nonautologous Platelets into Peripheral Vein, Percutaneous Approach (ICD-10-PCS; 2016-09-09 07:15)
PROC: 30233K1 Transfusion of Nonautologous Frozen Plasma into Peripheral Vein, Percutaneous Approach (ICD-10-PCS; 2016-09-09 07:15)
DX: I71.2 Thoracic aortic aneurysm, without rupture (principal); T82.03XA Leakage of heart valve prosthesis, initial encounter; J95.821 Acute postprocedural respiratory failure; D62 Acute posthemorrhagic anemia; I48.0 Paroxysmal atrial fibrillation; I25.10 Atherosclerotic heart disease of native coronary artery without angina pectoris; Z79.01 Long term (current) use of anticoagulants; D69.6 Thrombocytopenia, unspecified
CPT/HCPCS: 82947-QW; 97116-GP; 97162-GP; 97165-GO; 97530-GO; 97530-GP; 97535-GO; C1768; J0153; J0282; J0690; J1100; J1265; J1644; J1815; J2001; J2150; J2250; J2260; J2370; J2405; J2440; J2704; J2720; J2930; J3010; J7060; P9012; P9016; P9017; P9035; P9041

== ENCOUNTER → 2016-09-20 | Outpatient (CLI) | payer OTHER | LOC: FIMAGING 10:16 | PROVIDERS: ATTEND Thoracic Surgery (Cardiothoracic Vascular Surgery) | DX: Z98.890 Other specified postprocedural states (principal); Z95.2 Presence of prosthetic heart valve; I25.10 Atherosclerotic heart disease of native coronary artery without angina pectoris; I48.91 Unspecified atrial fibrillation ==

== ENCOUNTER → 2016-10-11 | Outpatient (CLI) | payer OTHER | LOC: BRMIMAGING 11:19 | PROVIDERS: ATTEND Internal Medicine Cardiovascular Disease | DX: Z03.89 Encounter for observation for other suspected diseases and conditions ruled out (principal) ==

== ENCOUNTER → 2018-06-20 | Outpatient (CLI) | payer OTHER | LOC: FIMAGING 11:14 | PROVIDERS: ATTEND Internal Medicine Critical Care Medicine | DX: I27.0 Primary pulmonary hypertension (principal); G47.33 Obstructive sleep apnea (adult) (pediatric) | CPT/HCPCS: 71046; 78582; A9540; A9558 ==